=== PATIENT | female | born 1980 | race Caucasian/White ===

== ENCOUNTER 2016-11-01 19:58 | Emergency (ER) | payer MEDICAID ==
[2016-11-01] MEDS ORDERED: Ketorolac 60 MG/2 ML SDV IM ONE (20:23)
[2016-11-01] MEDS ORDERED: Orphenadrine 100 MG Tab.ER PO STA (20:54)
[2016-11-01] MEDS ORDERED: HYDROmorphone 2 MG/ML SDV IM STA (21:47)
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
[2016-11-01] MEDS ORDERED: Acetaminophen/HYDROcodone 325-5 MG Tab PO ONE (22:32)
[2016-11-01 22:35] VITALS: BP 140/91
== END 2016-11-01 22:34 | disposition home or self-care (01) ==
LOC: FB.ED 19:58
DX: M43.6 Torticollis (principal); F17.210 Nicotine dependence, cigarettes, uncomplicated; E66.9 Obesity, unspecified; F98.8 Other specified behavioral and emotional disorders with onset usually occurring in childhood and adolescence; Z79.899 Other long term (current) drug therapy; Z88.0 Allergy status to penicillin; Z88.8 Allergy status to other drugs, medicaments and biological substances; Z88.1 Allergy status to other antibiotic agents
CPT/HCPCS: 96372; 99283; A9270; J1170; J1885

== ENCOUNTER 2018-11-02 01:39 | Emergency (ER) | payer MEDICAID ==
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
[2018-11-02] MEDS ORDERED: Ibuprofen 800 MG Tab PO ONE (03:09)
[2018-11-02 04:55] VITALS: BP 146/86; PULSE 84
== END 2018-11-02 03:50 | disposition home or self-care (01) ==
LOC: FB.ED 01:39
DX: S20.211A Contusion of right front wall of thorax, initial encounter (principal); F17.200 Nicotine dependence, unspecified, uncomplicated; E66.9 Obesity, unspecified; Y08.89XA Assault by other specified means, initial encounter; Z88.1 Allergy status to other antibiotic agents; Z88.0 Allergy status to penicillin; Z79.899 Other long term (current) drug therapy; Z68.28 Body mass index [BMI] 28.0-28.9, adult
CPT/HCPCS: 71101; 99283; A9270

== ENCOUNTER 2018-11-09 12:40 | Emergency (ER) | payer MEDICAID ==
[2018-11-09] MEDS ORDERED: Diazepam 10 MG Tab PO ONE (13:11)
[2018-11-09] MEDS ORDERED: Ketorolac 60 MG/2 ML SDV IM ONE (13:11)
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
[2018-11-09 14:11] VITALS: BP 130/86; PULSE 59
--- NOTE | 2018-11-10 10:46 | CR ---
INDICATION: Right upper back and chest pain. CHEST: PA and lateral views of the chest, 11/09/18, were compared with PA view and revealed suggestion of a dextroconvex scoliosis at the thoracolumbar spine. The heart and mediastinum were unremarkable. An active infiltrate, effusion, or pneumothorax was not identified. There is some apical pleural thickening bilaterally, as previously. IMPRESSION: No acute process. MTDD
== END 2018-11-09 14:00 | disposition home or self-care (01) ==
LOC: FB.ED 12:40
DX: S29.011D Strain of muscle and tendon of front wall of thorax, subsequent encounter (principal); S29.012D Strain of muscle and tendon of back wall of thorax, subsequent encounter; E66.9 Obesity, unspecified; F17.210 Nicotine dependence, cigarettes, uncomplicated; Z88.0 Allergy status to penicillin; Z88.1 Allergy status to other antibiotic agents; Z79.899 Other long term (current) drug therapy; X58.XXXD Exposure to other specified factors, subsequent encounter
CPT/HCPCS: 71046; 96372; 99283; A9270; J1885